=== PATIENT | female | born 2000 ===

== ENCOUNTER 2018-08-26 09:02 | Emergency (ER) | payer OTHER ==
[2018-08-26 09:21] VITALS: RESP 18; BMI 21.6
[2018-08-26] MEDS ORDERED: Sodium Chloride 0.9% 1,000 ML IV ONE (09:35)
--- NOTE | 2018-08-26 09:35 | C.PDOC ---
History Of Present Illness 17 y/o female with no significant PMhx, presents to the ER complaining of vomiting and abdominal pain which has been present for the past 4 days. Patient states that her LMP was approximately 4 weeks ago. Patient denies fever, chills, CP, SOB, diarrhea, constipation, urinary symptoms, vaginal bleeding, and vaginal discharge. Time Seen by Provider: 08/26/18 09:12 Chief Complaint (Nursing): Abdominal Pain History Per: Patient History/Exam Limitations: no limitations Onset/Duration Of Symptoms: Days Current Symptoms Are (Timing): Still Present Severity: Moderate Past Medical History Reviewed: Historical Data, Nursing Documentation, Vital Signs Vital Signs: Last Vital Signs Temp 99.1 F 08/26/18 09:08 Pulse 87 08/26/18 09:08 Resp 18 08/26/18 09:08 BP 105/69 08/26/18 09:08 Pulse Ox 96 08/26/18 09:08 Primary Care Provider: FAMILY PROVIDER,NO - Medical History PMH: No Chronic Diseases Surgical History: No Surg Hx Family History: States: No Known Family Hx - Social History Hx Alcohol Use: No Hx Substance Use: No - Immunization History Hx Tetanus Toxoid Vaccination: No Hx Pneumococcal Vaccination: No Review Of Systems Except As Marked, All Systems Reviewed And Found Negative. Constitutional: Negative for: Fever, Chills Gastrointestinal: Positive for: Vomiting, Abdominal Pain. Negative for: Diarrhea, Constipation Genitourinary: Negative for: Dysuria, Hematuria, Vaginal Discharge, Vaginal Bleeding Physical Exam - Physical Exam Appears: Non-toxic, No Acute Distress Skin: Normal Color, Warm, Dry Head: Atraumatic, Normacephalic Eye(s): bilateral: Normal Inspection Oral Mucosa: Moist Neck: Supple Chest: Symmetrical Cardiovascular: Rhythm Regular Respiratory: Normal Breath Sounds, No Rales, No Rhonchi, No Wheezing Gastrointestinal/Abdominal: Bowel Sounds (normoactive), Tenderness (mild suprapubic, epigastric, and LLQ tenderness), No Guarding, No Rebound Neurological/Psych: Oriented x3, Normal Speech ED Course And Treatment - Laboratory Results Result Diagrams: 08/26/18 10:17 08/26/18 10:17 Urine POC: Positive O2 Sat by Pulse Oximetry: 96 (RA) Pulse Ox Interpretation: Normal - CT Scan/US US-Abdomen Other Rad Studies (CT/US): Interpreted By Me, Read By Radiologist CT/US Interpretation: Right upper quadrant abdominal ultrasound. HISTORY: Right upper quadrant abdominal pain. Comparison: None available. Technique: Real-time sonography was performed through the right upper quadrant of the abdomen. Findings: Liver: 13 centimeters in length. Increased echogenicity of the hepatic parenchymal cortex suggestive for fatty infiltration versus hepatic parenchymal disease. Clinical correlation. Gallbladder: No calculi or sludge. Normal wall thickness of 2.4 millimeters. No gross wall edema. Negative sonog raphic Owen's sign. Common bile duct measures 2 millimeters, within normal limits. Limited visualization of the pancreas. Visualized aorta and IVC are preserved. Right kidney: 10.3 x 5.9 x 5.2 centimeters. No calculi or hydronephrosis. Impression: 1. Increased echogenicity of the hepatic pa renchymal cortex suggestive for fatty infiltration versus hepatic parenchymal disease. Clinical correlation. 2. Limited visualization of the pancreas. US-OB Other Rad Studies (CT/US): Read By Radiologist, Radiology Report Reviewed CT/US Interpretation: Pelvic ultrasound. HISTORY: . Pelvic pain. Comparison: None available. Technique: Real-time sonography was performed through the pelvis utilizing transabdominal and transvaginal techniques. Findings: Uterus: 9.3 x 4.9 x 6.7 centimeters. Homogeneous echotexture. Anteverted. Cervix measures 3.1 centimeters. Intrauterine gestational sac measuring 1.39 centimeters corresponding to a gestational age of 5 weeks and 4 days. Yolk sac measures 2.3 millimeters. [place]-rump length measures 2.9 millimeters corresponding to a gestational age of 5 weeks and 6 days. hea rt rate of 92 beats per minute. No free fluid in the pelvic cul-de-sac. Right ovary: 3.2 x 2.0 x 2.3 centimeters. Normal flow. Left ovary: 3.8 x 2.5 x 4.1 centimeters. Normal flow. Hypoechoic cyst measuring 2.2 x 1.6 x 1.5 centimeters. Impression: 1. Intrauterine corresponding to a gestational age of 5 weeks and 6 days by crown-rump length of 2.9 millimeters with heart rate of 92 beats per minute. 2. Small amount of free fluid within the pelvic cul-de-sac. 3. 2.2 centimeter left ovarian cyst. Limited 1st trimester ultrasound for viability purposes only. Continued interval followup with serial ultrasound, serial HCG levels, and gynecological consultation would be helpful if clinically indicated. Medical Decision Making Medical Decision Making: Plan: --Labs --UA --POC preg Updates: POC positive. US-Abdomen and US-Preg 1st Trimester with intrauterine and ovarian cyst. No other acute findings on limited US. Remaining labs normal, no concern for acute intraabdominal process at this time. Recommend follow up with OBGYN for care, referral given. Disposition Counseled Patient/Family Regarding: Studies Performed, Diagnosis, Need For Follo wup - Disposition [facility] [Outside] Disposition: HOME/ ROUTINE Disposition Time: 12:38 Condition: GOOD Additional Instructions: Please follow up with the OBGYN this week Instructions: Nausea and Vomiting of (DC), - The Second Month Forms: [employer] (Lao) Print Language: MONGOLIAN - Clinical Impression Clinical Impression: Normal first in first trimester - PA / [employer] / Resident Statement MD/DO has reviewed & agrees with the documentation as recorded. - Scribe Statement The provider has reviewed the documentation as recorded by the Georgina Rao Provider Attestation All medical record entries made by the Georgina were at my direction and personally dictated by me. I have reviewed the chart and agree that the record accurately reflects my personal performance of the history, physical exam, medical decision making, and the department course for this patient. I have also personally directed, reviewed, and agree with the discharge instructions and disposition.
[2018-08-26] MEDS ORDERED: Sodium Chloride 0.9% 1,000 ML ONE (10:07)
[2018-08-26 10:26] LABS: BASO # 0.1 K/uL (0.0-0.2); BASO % 0.7 % (0.0-2.0); EOS % 0.4 % (0.0-4.0); HEMOGLOBIN 12.2 g/dL (11.0-16.0); LYMPH # 1.7 K/uL (1.0-4.3); LYMPH % 18.3 % (20.0-40.0); MEAN CELL VOLUME 92.9 fL (81.0-99.0); MEAN CORPUSCULAR HEMOGLOBIN 31.3 pg (27.0-31.0); MEAN CORPUSCULAR HGB CONC 33.7 g/dL (33.0-37.0); MEAN PLATELET VOLUME 10.8 fL (7.2-11.7); MONO # 0.5 K/uL (0.0-0.8); NEUT # 7.2 K/uL (1.8-7.0); NEUT % 75.6 % (50.0-75.0); RBC 3.89 Mil/uL (3.80-5.20); RED CELL DISTRIBUTION WIDTH 12.9 % (11.5-14.5); WHITE BLOOD COUNT 9.6 K/uL (4.8-10.8)
[2018-08-26 10:44] LABS: ALB/GLOB RATIO 1.9 (1.0-2.1); ALBUMIN 4.5 g/dL (3.5-5.0); ALT/SGPT 21 U/L (9-52); AST/SGOT 25 U/L (14-36); BLOOD UREA NITROGEN 6 mg/dL (7-17); CALCIUM 9.3 mg/dl (8.6-10.4); GFR NON-AFRICAN AMERICAN > 60; LIPASE 59 U/L (23-300)
[2018-08-26 11:43] VITALS: BP 112/73; PULSE 88; TEMP 98.3
--- NOTE | 2018-08-26 12:04 | US ---
Right upper quadrant abdominal ultrasound HISTORY: Right upper quadrant abdominal pain. Comparison: None available. Technique: Real-time sonography was performed through the right upper quadrant of the abdomen. Findings: Liver: 13 centimeters in length. Increased echogenicity of the hepatic parenchymal cortex suggestive for fatty infiltration versus hepatic parenchymal disease. Clinical correlation. Gallbladder: No calculi or sludge. Normal wall thickness of 2.4 millimeters. No gross wall edema. Negative sonographic Owen's sign. Common bile duct measures 2 millimeters, within normal limits. Limited visualization of the pancreas. Visualized aorta and IVC are preserved. Right kidney: 10.3 x 5.9 x 5.2 centimeters. No calculi or hydronephrosis. Impression: 1. Increased echogenicity of the hepatic parenchymal cortex suggestive for fatty infiltration versus hepatic parenchymal disease. Clinical correlation. 2. Limited visualization of the pancreas.
--- NOTE | 2018-08-26 12:08 | US ---
Pelvic ultrasound HISTORY: . Pelvic pain. Comparison: None available. Technique: Real-time sonography was performed through the pelvis utilizing transabdominal and transvaginal techniques. Findings: Uterus: 9.3 x 4.9 x 6.7 centimeters. Homogeneous echotexture. Anteverted. Cervix measures 3.1 centimeters. Intrauterine gestational sac measuring 1.39 centimeters corresponding to a gestational age of 5 weeks and 4 days. Yolk sac measures 2.3 millimeters. [place]-rump length measures 2.9 millimeters corresponding to a gestational age of 5 weeks and 6 days. heart rate of 92 beats per minute. No free fluid in the pelvic cul-de-sac. Right ovary: 3.2 x 2.0 x 2.3 centimeters. Normal flow. Left ovary: 3.8 x 2.5 x 4.1 centimeters. Normal flow. Hypoechoic cyst measuring 2.2 x 1.6 x 1.5 centimeters. Impression: 1. Intrauterine corresponding to a gestational age of 5 weeks and 6 days by crown-rump length of 2.9 millimeters with heart rate of 92 beats per minute. 2. Small amount of free fluid within the pelvic cul-de-sac. 3. 2.2 centimeter left ovarian cyst. Limited 1st trimester ultrasound for viability purposes only. Continued interval followup with serial ultrasound, serial HCG levels, and gynecological consultation would be helpful if clinically indicated.
[2018-08-26 12:41] VITALS: O2SAT 96
== END 2018-08-26 12:54 | disposition home or self-care (01) ==
LOC: C.ER 09:02
DX: O26.891 Other specified pregnancy related conditions, first trimester (principal); R10.11 Right upper quadrant pain; Z3A.01 Less than 8 weeks gestation of pregnancy
CPT/HCPCS: 76705; 76805; 76817; 80053; 81025; 83690; 84702; 85025; 96361; 96374; 99284; J2405; J7030